=== PATIENT | female | born 2005 | race Two or more races ===

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

== ENCOUNTER → 2025-03-07 | Emergency (ER) | payer MEDICAID, OTHER ==
[~2025-03-07] VITALS: Ht 170.2 cm; Wt 70.5 kg
[2025-03-07 21:25] VITALS: BP 125/65; PULSE 85; RESP 17; TEMP 98.4; O2SAT 96
== END | disposition left against medical advice (07) ==
LOC: EDUNIT# 21:08 → EDBD 21:19 → ER 21:19
DX: M54.50 Low back pain, unspecified (principal); Z53.21 Procedure and treatment not carried out due to patient leaving prior to being seen by health care provider